=== PATIENT | female | born 2000 | race Caucasian/White ===

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

== ENCOUNTER 2023-09-17 22:09 | Inpatient (IN) | payer MEDICAID, OTHER ==
[~2023-09-17] VITALS: Ht 157.5 cm; Wt 99.4 kg
[~2023-09-17 22:09] MED LIST: ESCI10 PO
[2023-09-17 22:33] LABS: BASOPHILS % (AUTO) 0.4 % (0.0-2.0); EOSINOPHILS % (AUTO) 0.5 % (1.0-6.0); HEMATOCRIT 42.9 % (36-46); HEMOGLOBIN 14.3 g/dL (12.0-16.0); LYMPHOCYTES # (AUTO) 3.2 K/uL (1.0-4.8); LYMPHOCYTES % (AUTO) 27.3 % (22.0-44.0); MEAN CORPUSCULAR HEMOGLOBIN 29.1 pg (26.0-34.0); MEAN CORPUSCULAR HGB CONC 33.4 G/dL (31.0-37.0); MEAN CORPUSCULAR VOLUME 87 fL (80-100); MONOCYTES # (AUTO) 0.7 K/uL (0.1-1.0); NEUTROPHILS # (AUTO) 7.7 K/uL (1.8-7.7); NEUTROPHILS % (AUTO) 65.8 % (40.0-70.0); PLATELET COUNT (AUTO) 302 K/uL (150-450); RED BLOOD CELL COUNT(AUTO) 4.93 MIL/uL (4.00-5.20); RED CELL DISTRIBUTION WIDTH 13.7 % (11.5-14.5); WHITE BLOOD COUNT (AUTO) 11.7 K/uL (4.5-11.0)
[2023-09-17 22:44] LABS: ANION GAP 9 mmol/L (8-16); CALCIUM, TOTAL 9.5 mg/dL (8.8-10.5); CARBON DIOXIDE 27 mmol/L (22-29); CHLORIDE 103 mmol/L (98-107); CREATININE 0.74 mg/dL (0.60-1.30); GLOMERULAR FILTR. RATE CALC > 60 mL/min (>60); GLUCOSE,RANDOM 113 mg/dL (70-110); POTASSIUM 3.8 mmol/L (3.5-5.1); SODIUM SERUM 139 mmol/L (136-145); UREA NITROGEN, BLOOD 10 mg/dL (7-18)
[2023-09-17 22:46] LABS: ALCOHOL, URINE DRUG SCREEN NEGATIVE (NEGATIVE); AMPHET/METH SCREEN,URINE NEGATIVE (NEGATIVE); BARBITURATE SCREEN, URINE NEGATIVE (NEGATIVE); BENZODIAZEPINES SCREEN,URINE NEGATIVE (NEGATIVE); CANNABINOID SCREEN,URINE POSITIVE (NEGATIVE); COCAINE SCREEN,URINE NEGATIVE (NEGATIVE); METHADONE SCREEN, URINE NEGATIVE (NEGATIVE); OPIATE SCREEN,URINE NEGATIVE (NEGATIVE); PHENCYCLIDINE SCREEN,URINE NEGATIVE (NEGATIVE)
[2023-09-17 22:47] LABS: ALCOHOL, BLOOD (SERUM) < 3 mg/dL (0-10)
[2023-09-17 22:49] LABS: ALANINE AMINOTRANSFERASE 26 U/L (12-78); ALKALINE PHOSPHATASE 88 U/L (46-116); ASPARTATE AMINOTRANSFERASE 15 U/L (15-37); BILIRUBIN,TOTAL 0.3 mg/dL (0.1-1.0); TOTAL PROTEIN, SERUM 8.2 g/dL (6.4-8.2)
[2023-09-17 23:26] LABS: COVID AG,FIA SOURCE NASAL SWAB
[2023-09-17 23:43] LABS: SARS-COV2 (COVID) ANTIGEN,FIA Negative (Negative)
[2023-09-17 23:44] LABS: APPEARANCE,URINE HAZY (CLEAR); BILIRUBIN,URINE NEGATIVE (NEGATIVE); COLOR,URINE YELLOW (YELLOW); GLUCOSE, URINE (UA) NEGATIVE (NEGATIVE); KETONES,URINE NEGATIVE (NEGATIVE); LEUKOCYTE ESTERASE ,URINE SMALL (NEGATIVE); NITRATE,URINE NEGATIVE (NEGATIVE); OCCULT BLOOD,URINE NEGATIVE (NEGATIVE); PROTEIN,URINE TRACE mg/dL (NEGATIVE); SPECIFIC GRAVITIY, URINE 1.032 (1.003-1.030)
[2023-09-17] MEDS ORDERED: ZOLPIDEM TARTRATE 10 MG TABLET PO PRN (23:45)
[2023-09-17] MEDS ORDERED: OLANZapine 5 MG RAPDIS TABLET PO PRN (23:45)
[2023-09-17] MEDS ORDERED: LORazepam 2 MG TABLET PO PRN (23:45)
[2023-09-17 23:58] LABS: AMORPHOUS SEDIMENT,UR Few /LPF (None Seen); BACTERIA,URINE Rare /HPF (None Seen); RBC,URINE None Seen /HPF (0-2); SQUAMOUS EPITHELIAL CELL,UR Few /LPF (None Seen); WBC,URINE 0-2 /HPF (0-5)
[2023-09-18 04:23] VITALS: BP 101/64; PULSE 94; RESP 18; TEMP 97; O2SAT 97
[2023-09-18] MEDS ORDERED: INFLUENZA VIRUS VACCINE QVS 2023-24 (6MO+)/PF 60 MCG/0.5 ML SYRINGE IM. ONE (06:45)
[2023-09-18 08:02] VITALS: BP 123/75; PULSE 94; RESP 19; TEMP 97.7; O2SAT 97
[2023-09-18] MEDS ORDERED: HydrOXYzine PAMOATE 50 MG CAPSULE PO PRN (12:15)
[2023-09-18] MEDS ORDERED: GuaiFENesin/D-METHORPHAN [SUGAR-FREE] 200-20MG/10 ML SYRUP UDCUP PO PRN (12:15)
[2023-09-18] MEDS ORDERED: PROMETHAZINE HCL 25 MG TABLET PO PRN (12:15)
[2023-09-18] MEDS ORDERED: MAGNESIUM HYDROXIDE SUSPENSION 30 ML UDCUP PO PRN (12:15)
[2023-09-18] MEDS ORDERED: TUBERCULIN, PURIFIED PROTEIN DERIVATIVE 5 TU/0.1 ML SYRINGE ID ONE (12:15)
[2023-09-18] MEDS ORDERED: LOPERAMIDE HCL 2 MG CAPSULE PO PRN (12:15)
[2023-09-18] MEDS ORDERED: MAG HYDROX/ALUMINUM HYD/SIMETH ES 30 ML SUSPENSION UDCUP PO PRN (12:15)
[2023-09-18] MEDS ORDERED: ACETAMINOPHEN 325 MG TABLET PO PRN (12:15)
[2023-09-18] MEDS: THIAMINE 100 MG TABLET PO SCH (18:06)
[2023-09-18] MEDS: SULFAMETHOX/TRIMETH DS 800-160 MG/TABLET PO SCH (18:06)
[2023-09-18] MEDS: MELATONIN 5 MG TABLET PO SCH (20:02)
[2023-09-18] MEDS ORDERED: ESCITALOPRAM OXALATE 10 MG TABLET PO SCH (21:00)
[2023-09-18 21:10] VITALS: BP 100/61; PULSE 64; RESP 18; TEMP 97.5; O2SAT 98
[2023-09-19 08:07] LABS: HEMOGLOBIN A1C 5.2 % (3.8-5.6)
[2023-09-19 08:17] LABS: CHOL/HDL RATIO 5.1 (3.9-5.7); FREE T4 (FREE THYROXINE) 1.14 ng/dL (0.76-1.46); THYROID STIMULATING HORMONE 0.47 uIU/mL (0.36-3.74)
[2023-09-19 08:22] VITALS: BP 109/64; PULSE 79; RESP 18; TEMP 97.8; O2SAT 100
[2023-09-19] MEDS: SULFAMETHOX/TRIMETH DS 800-160 MG/TABLET PO SCH ×2 (09:35→16:36)
[2023-09-19] MEDS: OMEGA-3/DHA/EPA/FISH OIL 1,000 MG CAPSULE PO SCH (09:35)
[2023-09-19] MEDS: FLUoxetine HCL 20 MG CAPSULE PO SCH (09:35)
[2023-09-19] MEDS: FOLIC ACID 1 MG TABLET PO SCH (09:35)
[2023-09-19] MEDS: MULTIVITAMINS WITH MINERALS, THERAPEUTIC TABLET PO SCH (09:36)
[2023-09-19] MEDS: NALTREXONE HCL 50 MG TABLET PO SCH (09:36)
[2023-09-19] MEDS: THIAMINE 100 MG TABLET PO SCH ×2 (09:36→16:36)
[2023-09-19 20:19] VITALS: BP 126/78; PULSE 64; RESP 18; TEMP 98; O2SAT 97
[2023-09-19] MEDS: MELATONIN 5 MG TABLET PO SCH (20:30)
[2023-09-20 08:04] VITALS: BP 128/81; PULSE 60; RESP 18; TEMP 97.8; O2SAT 100
[2023-09-20] MEDS: FLUoxetine HCL 20 MG CAPSULE PO SCH (09:17)
[2023-09-20] MEDS: NALTREXONE HCL 50 MG TABLET PO SCH (09:17)
[2023-09-20] MEDS: THIAMINE 100 MG TABLET PO SCH ×2 (09:17→16:12)
[2023-09-20] MEDS: MULTIVITAMINS WITH MINERALS, THERAPEUTIC TABLET PO SCH (09:17)
[2023-09-20] MEDS: SULFAMETHOX/TRIMETH DS 800-160 MG/TABLET PO SCH ×2 (09:17→16:12)
[2023-09-20] MEDS: FOLIC ACID 1 MG TABLET PO SCH (09:17)
[2023-09-20] MEDS: OMEGA-3/DHA/EPA/FISH OIL 1,000 MG CAPSULE PO SCH (09:25)
[2023-09-20] MEDS: MELATONIN 5 MG TABLET PO SCH (20:54)
[2023-09-20 21:54] VITALS: BP 114/84; PULSE 63; RESP 18; TEMP 98.5; O2SAT 99
[2023-09-21] MEDS: MULTIVITAMINS WITH MINERALS, THERAPEUTIC TABLET PO SCH (08:12)
[2023-09-21] MEDS: FLUoxetine HCL 20 MG CAPSULE PO SCH (08:12)
[2023-09-21] MEDS: NALTREXONE HCL 50 MG TABLET PO SCH (08:12)
[2023-09-21] MEDS: FOLIC ACID 1 MG TABLET PO SCH (08:12)
[2023-09-21] MEDS: OMEGA-3/DHA/EPA/FISH OIL 1,000 MG CAPSULE PO SCH (08:12)
[2023-09-21] MEDS: SULFAMETHOX/TRIMETH DS 800-160 MG/TABLET PO SCH (08:12)
[2023-09-21] MEDS: THIAMINE 100 MG TABLET PO SCH ×2 (08:12→16:12)
[2023-09-21 09:05] VITALS: BP 110/65; PULSE 72; RESP 17; TEMP 97.7; O2SAT 98
[2023-09-21] MEDS ORDERED: FLUO20CA36 PO (15:08)
[2023-09-21] MEDS ORDERED: OMEG-135 PO ×2 (15:08→15:19)
[2023-09-21] MEDS ORDERED: NALT50TA PO ×2 (15:08→15:18)
[2023-09-21] MEDS ORDERED: MELA5TAB40 PO (15:08)
[2023-09-21] MEDS ORDERED: FLUO-341 PO (15:16)
[2023-09-21] MEDS ORDERED: MELA5TAB21 PO (15:18)
== END 2023-09-21 17:51 | disposition home or self-care (01) | DRG 751 ==
LOC: EMS 22:10 → B2S 09-18 02:04
PROVIDERS: ADMIT Psychiatry & Neurology Psychiatry; ATTEND Psychiatry & Neurology Psychiatry
DX: F33.2 Major depressive disorder, recurrent severe without psychotic features (principal); R45.851 Suicidal ideations; D72.829 Elevated white blood cell count, unspecified; N39.0 Urinary tract infection, site not specified; F41.9 Anxiety disorder, unspecified; E66.9 Obesity, unspecified; F17.200 Nicotine dependence, unspecified, uncomplicated; F12.90 Cannabis use, unspecified, uncomplicated; Z20.822 Contact with and (suspected) exposure to COVID-19; Z79.899 Other long term (current) drug therapy; Z68.41 Body mass index [BMI] 40.0-44.9, adult
CPT/HCPCS: 80053; 80061; 80307; 81001; 83036; 84439; 84443; 84703; 85025; 86592; 99285; G0480; Q9967